=== PATIENT | male | born 1990 | race Caucasian/White ===

== ENCOUNTER 2020-09-17 12:28 | Emergency (ER) | payer MEDICAID ==
[~2020-09-17] VITALS: Ht 185.4 cm; Wt 90.9 kg
[2020-09-17 13:54] VITALS: BP 142/71
[2020-09-17] MEDS ORDERED: BACITRACIN/POLYMYXIN B 15 GM OINTMENT TP ONE (14:15)
[2020-09-17] MEDS ORDERED: PERTUSS(ACELL),DIPH,TET VAC/PF 0.5 ML SYRINGE IM. ONE (14:15)
[2020-09-17] MEDS ORDERED: HYDROCODONE/ACETAMINOPHEN 5-325 MG TABLET PO ONE (14:15)
== END 2020-09-17 15:26 | disposition home or self-care (01) ==
LOC: EMS 12:32
DX: T23.202A Burn of second degree of left hand, unspecified site, initial encounter (principal); W01.0XXA Fall on same level from slipping, tripping and stumbling without subsequent striking against object, initial encounter; Y93.89 Activity, other specified; Y92.89 Other specified places as the place of occurrence of the external cause; Y99.8 Other external cause status
CPT/HCPCS: 16000; 16020; 90471; 90715; 99283